=== PATIENT | male | born 1945 | race Caucasian/White ===

== ENCOUNTER → 2018-08-04 | Outpatient (CLI) | payer OTHER ==
[~2018-08-04] MED LIST: ASPI81EC PO; CIPR500 PO; HYDACE5325 PO; LAMO100 PO; METO50ER PO; METR500 PO; OLME20 PO; RXHYD5325 PO; SIMV10 PO; VENL150ER PO; VENL75
== END ==
LOC: LAB 14:52 → LAB SHORT 14:52
DX: L08.9 Local infection of the skin and subcutaneous tissue, unspecified (principal)
CPT/HCPCS: 87070; 87205

== ENCOUNTER → 2019-04-19 | Outpatient (CLI) | payer OTHER | LOC: LAB 11:45 → LAB SHORT 11:45 | DX: L08.9 Local infection of the skin and subcutaneous tissue, unspecified (principal) | CPT/HCPCS: 87070; 87077; 87147; 87186; 87205 ==

== ENCOUNTER 2020-06-13 09:14 | Day surgery (SDC) | payer OTHER ==
[~2020-06-13] VITALS: Ht 172.7 cm; Wt 126.7 kg
--- NOTE | 2020-06-13 09:53 | NUR ---
06/13/20 0953 DALTON SHEPPARDINE GTT PLACED AT [address] GOLD'S ORDERS AT 0970
[2020-06-13] MEDS ORDERED: TAMS.4ER PO (09:57)
[2020-07-06] MEDS ORDERED: METO50ER PO (10:51)
[2020-07-06] MEDS ORDERED: Lamictal200 MG PO (10:51)
[2020-07-06] MEDS ORDERED: Aspirin EC81 MG PO (10:51)
[2020-07-06] MEDS ORDERED: LOSA50 PO (10:51)
[2020-07-06] MEDS ORDERED: VENL150ER PO (10:52)
[2020-07-06] MEDS ORDERED: ZOCOR20 MG PO (10:52)
[2020-07-06] MEDS ORDERED: VENLAFAXINE HCL75 M1 PO (10:52)
[2020-07-06] MEDS ORDERED: TAMS.4ER PO (10:52)
== END 2020-06-13 11:46 | disposition home or self-care (01) ==
LOC: ORSCSDS 09:14
PROVIDERS: Ophthalmology
PROC: 08RJ3JZ Replacement of Right Lens with Synthetic Substitute, Percutaneous Approach (ICD-10-PCS; principal; 2020-06-13 10:30)
DX: H25.11 Age-related nuclear cataract, right eye (principal); I10 Essential (primary) hypertension; I48.91 Unspecified atrial fibrillation; J44.9 Chronic obstructive pulmonary disease, unspecified; G47.33 Obstructive sleep apnea (adult) (pediatric); Z87.891 Personal history of nicotine dependence; E78.5 Hyperlipidemia, unspecified; Z79.82 Long term (current) use of aspirin; Z79.899 Other long term (current) drug therapy; E66.01 Morbid (severe) obesity due to excess calories; Z68.41 Body mass index [BMI] 40.0-44.9, adult
CPT/HCPCS: A9270; J2001; J2250; J3010; J3301; J7040; J7120; V2632

== ENCOUNTER 2020-07-13 08:45 | Day surgery (SDC) | payer OTHER ==
[~2020-07-13] VITALS: Ht 172.7 cm; Wt 127.3 kg
[~2020-07-13 08:45] MED LIST changes: +Aspirin EC81 MG PO; +LOSA50 PO; +Lamictal200 MG PO; +TAMS.4ER PO; +VENLAFAXINE HCL75 M1 PO; +ZOCOR20 MG PO
[2020-07-13] MEDS ORDERED: OLME5TAB PO (09:23)
== END 2020-07-13 11:13 | disposition home or self-care (01) ==
LOC: ORSCSDS 08:45
PROVIDERS: Ophthalmology
PROC: 08RK3JZ Replacement of Left Lens with Synthetic Substitute, Percutaneous Approach (ICD-10-PCS; principal; 2020-07-13 10:30)
DX: H25.12 Age-related nuclear cataract, left eye (principal); I10 Essential (primary) hypertension; G47.33 Obstructive sleep apnea (adult) (pediatric); J44.9 Chronic obstructive pulmonary disease, unspecified; Z87.891 Personal history of nicotine dependence; E66.01 Morbid (severe) obesity due to excess calories; Z68.41 Body mass index [BMI] 40.0-44.9, adult; I48.91 Unspecified atrial fibrillation; Z79.899 Other long term (current) drug therapy; Z79.82 Long term (current) use of aspirin
CPT/HCPCS: A9270; J2001; J2250; J3010; J3301; J7040; V2632

== ENCOUNTER → 2021-01-04 | Outpatient (CLI) | payer OTHER ==
[~2021-01-04] MED LIST changes: +OLME5TAB PO
== END | disposition home or self-care (01) ==
LOC: LAB SHORT 15:12
DX: N39.0 Urinary tract infection, site not specified (principal)
CPT/HCPCS: 87086

== ENCOUNTER 2021-09-08 15:34 | Emergency (ER) | payer OTHER ==
[~2021-09-08] VITALS: Ht 172.7 cm; Wt 127.0 kg
== END 2021-09-08 17:16 | disposition home or self-care (01) ==
LOC: ER 15:34
DX: S06.0X0A Concussion without loss of consciousness, initial encounter (principal); W01.198A Fall on same level from slipping, tripping and stumbling with subsequent striking against other object, initial encounter; Z79.899 Other long term (current) drug therapy; Z87.891 Personal history of nicotine dependence
CPT/HCPCS: 70450

== ENCOUNTER 2023-05-19 17:31 | Emergency (ER) | payer OTHER ==
[~2023-05-19] VITALS: Ht 175.3 cm; Wt 127.0 kg
[2023-05-19 18:23] LABS: BASOPHILS ABSOLUTE AUTO 0.04 K/mm3 (0.00-0.23); BASOPHILS PERCENT AUTO 1 % (0-2); EOSINOPHILS ABSOLUTE AUTO 0.16 K/mm3 (0.00-0.68); EOSINOPHILS PERCENT AUTO 3 % (0-6); Hematocrit 42.4 % (37.0-53.0); Hemoglobin 14.4 g/dL (13.5-17.5); IMMATURE GRAN ABSOLUTE AUTO 0.01 K/mm3 (0.00-0.10); IMMATURE GRAN PERCENT AUTO 0 % (0-1); LYMPHOCYTES ABSOLUTE AUTO 1.48 K/mm3 (0.84-5.20); LYMPHOCYTES PERCENT AUTO 24 % (21-46); MONOCYTES PERCENT AUTO 10 % (4-13); Mean Corpuscular HGB 31.6 pg (26.0-34.0); Mean Corpuscular Volume 93 fL (80-100); Mean Platelet Volume 9.2 fL (9.1-12.4); NEUTROPHILS ABSOLUTE AUTO 4.02 K/mm3 (1.96-9.15); NEUTROPHILS PERCENT AUTO 64 % (41-73); Platelet Count 208 K/mm3 (150-400); Red Blood Cell Count 4.56 M/mm3 (4.30-5.90); White Blood Cell Count 6.31 K/mm3 (4.00-11.30)
[2023-05-19 18:38] LABS: Albumin, Blood 3.5 g/dL (3.4-5.0); Albumin/Globulin Ratio 1.1 (0.8-1.8); Bilirubin, Total 0.3 mg/dL (0.1-1.0); Calcium, Blood 8.8 mg/dL (8.5-10.1); Creatinine, Blood 0.94 mg/dL (0.60-1.20); Globulin, Blood 3.1 g/dL (2.2-4.0); Potassium, Blood 3.9 mmol/L (3.5-5.5); Total Protein, Blood 6.6 g/dL (6.4-8.2)
[2023-05-19 21:45] VITALS: BP 124/90
== END 2023-05-19 21:56 | disposition home or self-care (01) ==
LOC: ER 17:31
PROVIDERS: Physician Assistant
DX: I48.92 Unspecified atrial flutter (principal); I10 Essential (primary) hypertension; E78.5 Hyperlipidemia, unspecified; N40.0 Benign prostatic hyperplasia without lower urinary tract symptoms; F17.220 Nicotine dependence, chewing tobacco, uncomplicated; Z79.82 Long term (current) use of aspirin; Z79.899 Other long term (current) drug therapy
CPT/HCPCS: 71046; 80053; 83690; 84484; 85025; 93005; 93010; 99285-25

== ENCOUNTER → 2024-01-22 | Outpatient (CLI) | payer OTHER | LOC: LAB SHORT 16:34 → LAB 16:34 | DX: L03.116 Cellulitis of left lower limb (principal) | CPT/HCPCS: 87070; 87075; 87077; 87147; 87186; 87205 ==

== ENCOUNTER → 2024-10-26 | Outpatient (CLI) | payer OTHER ==
[2024-10-26 12:27] LABS: BASOPHILS ABSOLUTE AUTO 0.04 K/mm3 (0.00-0.23); BASOPHILS PERCENT AUTO 1 % (0-2); EOSINOPHILS ABSOLUTE AUTO 0.14 K/mm3 (0.00-0.68); EOSINOPHILS PERCENT AUTO 2 % (0-6); Hematocrit 41.6 % (37.0-53.0); Hemoglobin 13.8 g/dL (13.5-17.5); IMMATURE GRAN ABSOLUTE AUTO 0.02 K/mm3 (0.00-0.10); IMMATURE GRAN PERCENT AUTO 0 % (0-1); LYMPHOCYTES ABSOLUTE AUTO 1.33 K/mm3 (0.84-5.20); LYMPHOCYTES PERCENT AUTO 18 % (21-46); MONOCYTES ABSOLUTE AUTO 0.65 K/mm3 (0.16-1.47); MONOCYTES PERCENT AUTO 9 % (4-13); Mean Corpuscular HGB Conc 33.2 g/dL (31.5-36.5); Mean Corpuscular Volume 96 fL (80-100); NEUTROPHILS ABSOLUTE AUTO 5.09 K/mm3 (1.96-9.15); NEUTROPHILS PERCENT AUTO 70 % (41-73); NRBC ABSOLUTE 0.00 K/mm3 (0.00-0.02); NRBC Auto 0.0 /100 WBC (0.0-0.2); Platelet Count 216 K/mm3 (150-400); RDW Coefficient Variation 13.7 % (11.7-14.2); RDW Standard Deviation 48.6 fL (35.1-46.3)
[2024-10-26 12:53] LABS: Alanine Aminotransfer (ALT/SGP 26.0 U/L (12-78); Albumin, Blood 3.7 g/dL (3.4-5.0); Albumin/Globulin Ratio 1.2 (0.8-1.8); Anion Gap 14.0 mmol/L (3-11); Aspartate Aminotrans (AST/SGOT 20.0 U/L (12-37); Bilirubin, Total 0.6 mg/dL (0.1-1.0); Blood Urea Nitrogen 16.0 mg/dL (8-24); CO2, Blood 26.0 mmol/L (21-32); Calcium, Blood 9.1 mg/dL (8.5-10.1); Chloride, Blood 105.0 mmol/L (98-108); Creatinine, Blood 1.14 mg/dL (0.60-1.20); Globulin, Blood 3.1 g/dL (2.2-4.0); Glucose, Blood 120.0 mg/dL (70-99); Potassium, Blood 4.5 mmol/L (3.5-5.5); Sodium, Blood 140.0 mmol/L (136-145); Total Protein, Blood 6.8 g/dL (6.4-8.2)
== END ==
LOC: LAB 12:19 → LAB SHORT 12:19
PROVIDERS: Physician Assistant
DX: I10 Essential (primary) hypertension (principal)
CPT/HCPCS: 80053; 83880; 84484; 85025

== ENCOUNTER 2024-12-30 20:18 | Emergency (ER) | payer OTHER ==
[~2024-12-30] VITALS: Ht 172.7 cm; Wt 127.0 kg
[2024-12-30 21:03] LABS: BASOPHILS ABSOLUTE AUTO 0.03 K/mm3 (0.00-0.23); BASOPHILS PERCENT AUTO 0 % (0-2); EOSINOPHILS ABSOLUTE AUTO 0.13 K/mm3 (0.00-0.68); EOSINOPHILS PERCENT AUTO 2 % (0-6); Hematocrit 42.1 % (37.0-53.0); Hemoglobin 13.7 g/dL (13.5-17.5); IMMATURE GRAN ABSOLUTE AUTO 0.02 K/mm3 (0.00-0.10); IMMATURE GRAN PERCENT AUTO 0 % (0-1); LYMPHOCYTES ABSOLUTE AUTO 1.21 K/mm3 (0.84-5.20); LYMPHOCYTES PERCENT AUTO 16 % (21-46); MONOCYTES ABSOLUTE AUTO 0.79 K/mm3 (0.16-1.47); MONOCYTES PERCENT AUTO 10 % (4-13); Mean Corpuscular HGB Conc 32.5 g/dL (31.5-36.5); Mean Corpuscular Volume 98 fL (80-100); NEUTROPHILS ABSOLUTE AUTO 5.48 K/mm3 (1.96-9.15); NEUTROPHILS PERCENT AUTO 72 % (41-73); NRBC ABSOLUTE 0.00 K/mm3 (0.00-0.02); NRBC Auto 0.0 /100 WBC (0.0-0.2); Platelet Count 181 K/mm3 (150-400); RDW Coefficient Variation 14.1 % (11.7-14.2); RDW Standard Deviation 51.1 fL (35.1-46.3)
[2024-12-30] MEDS ORDERED: Ipratropium/Albuterol SulF 2.5-0.5MG/3 ML Amp INH ONE (21:35)
[2024-12-30 21:40] LABS: Alanine Aminotransfer (ALT/SGP 24.0 U/L (12-78); Albumin, Blood 3.8 g/dL (3.4-5.0); Albumin/Globulin Ratio 1.2 (0.8-1.8); Anion Gap 8.0 mmol/L (3-11); Bilirubin, Total 0.7 mg/dL (0.1-1.0); Blood Urea Nitrogen 20.0 mg/dL (8-24); CO2, Blood 28.0 mmol/L (21-32); Calcium, Blood 8.9 mg/dL (8.5-10.1); Chloride, Blood 107.0 mmol/L (98-108); Creatinine, Blood 1.14 mg/dL (0.60-1.20); Globulin, Blood 3.2 g/dL (2.2-4.0); Glucose, Blood 140.0 mg/dL (70-99); Potassium, Blood 4.4 mmol/L (3.5-5.5); Sodium, Blood 139.0 mmol/L (136-145); Total Protein, Blood 7.0 g/dL (6.4-8.2)
[2024-12-30 22:06] LABS: Aspartate Aminotrans (AST/SGOT 16.0 U/L (12-37)
[2024-12-30] MEDS ORDERED: Metoprolol Tartrate 1 MG/ML 5 ML VIAL IV PRN (22:50)
[2024-12-31] MEDS ORDERED: AMOCLA875 PO (01:14)
[2024-12-31] MEDS ORDERED: PRED20 PO (01:14)
[2024-12-31] MEDS ORDERED: RX Prepack Albuterol 1 PREPACK/6.7 GM INH UD ONE (01:15)
[2024-12-31 01:30] VITALS: BP 154/121
== END 2024-12-31 01:41 | disposition home or self-care (01) ==
LOC: ER 20:18
PROVIDERS: Student in an Organized Health Care Education/Training Program
DX: J44.1 Chronic obstructive pulmonary disease with (acute) exacerbation (principal); I10 Essential (primary) hypertension; E78.5 Hyperlipidemia, unspecified; F17.220 Nicotine dependence, chewing tobacco, uncomplicated; Z79.82 Long term (current) use of aspirin; Z79.2 Long term (current) use of antibiotics; Z79.899 Other long term (current) drug therapy
CPT/HCPCS: 71045; 80053; 83880; 84484; 85025; 93005; 93010; 96374; 99285-25; A9270; J7512

== ENCOUNTER 2025-01-04 06:08 | Day surgery (SDC) | payer OTHER ==
[2025-01-04] VITALS (8 sets, daily range): BP systolic 134–172; BP diastolic 96–125
[~2025-01-04] VITALS: Ht 172.7 cm; Wt 132.0 kg
[~2025-01-04 06:08] MED LIST changes: +AMOCLA875 PO; +PRED20 PO
[2025-01-04] MEDS ORDERED: POTCHL20ER PO (06:35)
[2025-01-04] MEDS ORDERED: FURO20 PO (06:35)
[2025-01-04] MEDS ORDERED: ELIQUIS5 M2 PO (06:35)
[2025-01-04] MEDS ORDERED: NS 1,000 ML IV ONE (06:45)
--- NOTE | 2025-01-04 07:21 | NUR ---
ASSUMED CARE FROM ANETHESIA. PT AWAKE AND VERBALIZING WELL. AFIB 110-120 BPM POST CARDIOVERSION.
[2025-01-04] MEDS ORDERED: AMLO5 PO (07:40)
--- NOTE | 2025-01-04 08:18 | NUR ---
PT AND VERBALIZED UNDERSTANDING OF WRITTEN AND VERBAL D/C INST. IV REMOVED. PT AMB IN CONRAD /S DIFFICULTY. AFIB 110 BPM ON D/C. PT TAKEN OUT OF THE HRT CENTER VIA W/C.
[2025-01-04] MEDS ORDERED: Propofol 10mg/ml 20 ml Vial (Procedural) IV ONE (12:11)
[2025-01-04] MEDS ORDERED: Lidocaine HCl 2% 20 MG/ML 5ML SYR IV ONE (12:11)
== END 2025-01-04 23:00 | disposition home or self-care (01) ==
LOC: MHTC 06:08
DX: I48.0 Paroxysmal atrial fibrillation (principal); I27.20 Pulmonary hypertension, unspecified; I10 Essential (primary) hypertension; G47.33 Obstructive sleep apnea (adult) (pediatric); Z79.01 Long term (current) use of anticoagulants; Z79.899 Other long term (current) drug therapy; Z91.018 Allergy to other foods; Z87.891 Personal history of nicotine dependence
CPT/HCPCS: 92960; J2003; J2704; J7030

== ENCOUNTER 2025-01-12 14:40 | Inpatient (IN) | payer OTHER ==
[~2025-01-12] VITALS: Ht 172.7 cm; Wt 117.6 kg
[~2025-01-12 14:40] MED LIST changes: +AMLO5 PO; +ELIQUIS5 M2 PO; +FURO20 PO; -LOSA50 PO; +LOSARTAN POTAS100 MG PO; +METO100ER PO; +POTCHL20ER PO; +Venlafaxine HC225 MG PO
[2025-01-12 15:13] LABS: BASOPHILS ABSOLUTE AUTO 0.04 K/mm3 (0.00-0.23); BASOPHILS PERCENT AUTO 1 % (0-2); EOSINOPHILS ABSOLUTE AUTO 0.09 K/mm3 (0.00-0.68); EOSINOPHILS PERCENT AUTO 1 % (0-6); Hematocrit 43.5 % (37.0-53.0); Hemoglobin 14.0 g/dL (13.5-17.5); IMMATURE GRAN ABSOLUTE AUTO 0.03 K/mm3 (0.00-0.10); IMMATURE GRAN PERCENT AUTO 0 % (0-1); LYMPHOCYTES ABSOLUTE AUTO 1.31 K/mm3 (0.84-5.20); LYMPHOCYTES PERCENT AUTO 18 % (21-46); MONOCYTES ABSOLUTE AUTO 0.77 K/mm3 (0.16-1.47); MONOCYTES PERCENT AUTO 10 % (4-13); Mean Corpuscular HGB Conc 32.2 g/dL (31.5-36.5); Mean Corpuscular Volume 98 fL (80-100); NEUTROPHILS ABSOLUTE AUTO 5.18 K/mm3 (1.96-9.15); NEUTROPHILS PERCENT AUTO 70 % (41-73); NRBC ABSOLUTE 0.00 K/mm3 (0.00-0.02); NRBC Auto 0.0 /100 WBC (0.0-0.2); Platelet Count 182 K/mm3 (150-400); RDW Coefficient Variation 14.3 % (11.7-14.2); RDW Standard Deviation 51.6 fL (35.1-46.3)
[2025-01-12 15:51] LABS: Alanine Aminotransfer (ALT/SGP 28.0 U/L (12-78); Albumin, Blood 3.5 g/dL (3.4-5.0); Albumin/Globulin Ratio 1.1 (0.8-1.8); Anion Gap 7.0 mmol/L (3-11); Aspartate Aminotrans (AST/SGOT 19.0 U/L (12-37); Bilirubin, Total 1.1 mg/dL (0.1-1.0); Blood Urea Nitrogen 19.0 mg/dL (8-24); CO2, Blood 26.0 mmol/L (21-32); Calcium, Blood 8.9 mg/dL (8.5-10.1); Chloride, Blood 107.0 mmol/L (98-108); Creatinine, Blood 1.1 mg/dL (0.60-1.20); Globulin, Blood 3.2 g/dL (2.2-4.0); Glucose, Blood 123.0 mg/dL (70-99); Potassium, Blood 4.6 mmol/L (3.5-5.5); Sodium, Blood 135.0 mmol/L (136-145); Total Protein, Blood 6.7 g/dL (6.4-8.2)
[2025-01-12] MEDS ORDERED: Diltiazem HCl 5 MG / ML 5ML Vial IV ONE (19:45)
[2025-01-12] MEDS ORDERED: FLU VACC TS2025-26(6MOS UP)/PF 45 MCG/0.5 ML SYRINGE IM SCH (22:00)
[2025-01-12] MEDS ORDERED: Ondansetron HCl 2 MG / ML 2ML Vial IV PRN (22:00)
[2025-01-12] MEDS ORDERED: Diltiazem HCL 125MG/D5 125ML IV SCH (22:20)
[2025-01-13] VITALS (7 sets, daily range): BP systolic 117–165; BP diastolic 70–109
[2025-01-13 04:22] LABS: BASOPHILS ABSOLUTE AUTO 0.03 K/mm3 (0.00-0.23); BASOPHILS PERCENT AUTO 0 % (0-2); EOSINOPHILS ABSOLUTE AUTO 0.09 K/mm3 (0.00-0.68); EOSINOPHILS PERCENT AUTO 1 % (0-6); Hematocrit 40.9 % (37.0-53.0); Hemoglobin 13.3 g/dL (13.5-17.5); IMMATURE GRAN ABSOLUTE AUTO 0.02 K/mm3 (0.00-0.10); IMMATURE GRAN PERCENT AUTO 0 % (0-1); LYMPHOCYTES ABSOLUTE AUTO 1.71 K/mm3 (0.84-5.20); LYMPHOCYTES PERCENT AUTO 22 % (21-46); MONOCYTES ABSOLUTE AUTO 0.78 K/mm3 (0.16-1.47); MONOCYTES PERCENT AUTO 10 % (4-13); Mean Corpuscular HGB Conc 32.5 g/dL (31.5-36.5); Mean Corpuscular Volume 97 fL (80-100); NEUTROPHILS ABSOLUTE AUTO 5.29 K/mm3 (1.96-9.15); NEUTROPHILS PERCENT AUTO 67 % (41-73); NRBC ABSOLUTE 0.00 K/mm3 (0.00-0.02); NRBC Auto 0.0 /100 WBC (0.0-0.2); Platelet Count 167 K/mm3 (150-400); RDW Coefficient Variation 14.1 % (11.7-14.2); RDW Standard Deviation 50.6 fL (35.1-46.3)
--- NOTE | 2025-01-13 06:43 | NUR ---
NO ACUTE EVENTS OVERNIGHT. PT ARRIVED FROM THE ED VIA STRETCHER. PT IS ALERT AND ORIENTED X 4. FOLLOWS COMMANDS. ABLE TO AMBULATE TO THE BATHROOM WITH SBA. CARDIZEM IS INFUSING. VSS. BED LOCKED IN LOWEST POSITION. CALL LIGHT WITHIN REACH. AT BEDSIDE. PT WEARING HIS HOME CPAP WHILE SLEEPING.
[2025-01-13 06:56] LABS: Alanine Aminotransfer (ALT/SGP 26.0 U/L (12-78); Albumin, Blood 3.4 g/dL (3.4-5.0); Albumin/Globulin Ratio 1.2 (0.8-1.8); Anion Gap 10.0 mmol/L (3-11); Aspartate Aminotrans (AST/SGOT 16.0 U/L (12-37); Bilirubin, Total 1.3 mg/dL (0.1-1.0); Blood Urea Nitrogen 18.0 mg/dL (8-24); CO2, Blood 25.0 mmol/L (21-32); Calcium, Blood 8.9 mg/dL (8.5-10.1); Chloride, Blood 105.0 mmol/L (98-108); Creatinine, Blood 0.99 mg/dL (0.60-1.20); Globulin, Blood 2.8 g/dL (2.2-4.0); Glucose, Blood 114.0 mg/dL (70-99); Magnesium, Blood 2.1 mg/dL (1.6-2.4); Potassium, Blood 4.4 mmol/L (3.5-5.5); Sodium, Blood 136.0 mmol/L (136-145); Total Protein, Blood 6.2 g/dL (6.4-8.2)
--- NOTE | 2025-01-13 19:09 | NUR ---
SHIFT SUMMARY PATIENT AOX4 ABLE TO MAKE NEEDS KNOWN DENIES CP OR SOB. HIS VITALS ARE STABLE WITH ELEVATED BP AND O2 96% ON RA. HIS HR IS 70-80S ON THE DILT GTT. IN THE MORNING PATIENT DID NOT WANT TO TAKE HIS METOPROLOL HOSPITALIST AWARE AND CARDIOLOGY CONSULTED AND SPOKE WITH PATIENT AT BEDSIDE.
--- NOTE | 2025-01-13 21:17 | NUR ---
PM NOTES PT HAD 12 SECOND RUN ON VTACH; ASYMPTOMATIC; BP ELEVATE, TELE AFIB 80-90'S, GAVE PM MEDICATIONS, INCLUDING METOPROLOL,NOTIFIED DR CISNEROS, NEW ORDERS FOR AM LABS. PT ALERT, ORIENTED X4; CALM AND COOPERATIVE WITH CARE. PT RESTING IN BED, UP IND IN ROOM. PT DENEIS PAIN, CHEST PAIN/PRESSURE, SOB, NAUSEA, DIZZINESS AND NUMB/TINGLING. TELE REMAINS AFIB, 80-90, ELEVATED BP. EDEMA NOTED TO BLE. SPO2 >90% ON RA, BREATHING EVEN AND UNALBORED. ABD SOFT, NONTENDER, +BT T/O. OTHER VSS. CALL LIGHT WITHIN REACH.
[2025-01-14 03:02] VITALS: BP 1428/93
[2025-01-14 03:46] LABS: Alanine Aminotransfer (ALT/SGP 26.0 U/L (12-78); Albumin, Blood 3.4 g/dL (3.4-5.0); Albumin/Globulin Ratio 1.1 (0.8-1.8); Anion Gap 8.0 mmol/L (3-11); Aspartate Aminotrans (AST/SGOT 21.0 U/L (12-37); Bilirubin, Total 1.2 mg/dL (0.1-1.0); Blood Urea Nitrogen 16.0 mg/dL (8-24); CO2, Blood 31.0 mmol/L (21-32); Calcium, Blood 9.0 mg/dL (8.5-10.1); Chloride, Blood 103.0 mmol/L (98-108); Creatinine, Blood 0.95 mg/dL (0.60-1.20); Globulin, Blood 3.0 g/dL (2.2-4.0); Glucose, Blood 135.0 mg/dL (70-99); Potassium, Blood 3.6 mmol/L (3.5-5.5); Sodium, Blood 138.0 mmol/L (136-145); Total Protein, Blood 6.4 g/dL (6.4-8.2)
--- NOTE | 2025-01-14 04:57 | NUR ---
SHIFT SUMMARY NO ACUTE CHANGES NOTED DURING SHIFT. VSS. CALL LIGHT WITH IN REACH.
[2025-01-14 08:08] VITALS: BP 153/104
[2025-01-14] MEDS ORDERED: Polyethylene Glycol 3350 17 gm PO SCH (10:15)
[2025-01-14 12:11] VITALS: BP 140/102
[2025-01-14 15:14] VITALS: BP 152/82
--- NOTE | 2025-01-14 17:30 | NUR ---
THIS RN AND GUN PERFORATOR LOADER ATTEMPTED TO GET AHOLD OF DR. PÉREZ, WHO IS ON THE PT'S CASE, TO UPDATE HIM OF AFIB 120'S-130'S WITH ACTIVITY. AWAITING FOR A CALL BACK AT THIS TIME.
--- NOTE | 2025-01-14 18:50 | NUR ---
SHIFT SUMMARY PT IS A&0X4, PLEASANT AND COOPERATIVE W/ CARE, ABLE TO MAKE NEEDS KNOWN. AMBULATES IND IN RM. PT MAINTAINS O2 SAT ABOVE 93% ON RA, DENIES SOB. A FIB 80s-110s AT REST ELEVATION TO 120s-130s WITH ACTIVITY. PT DENIED CHEST PAIN/PRESSURE T/O SHIFT. BP NOTED TO HAVE DIASTOLIC HYPERTENSION, DISCUSSED W/ DR. CARLIN. NO NEW ORDERS. FREQUENT TRIPS TO BR DUE TO DIURETICS, WITH MULTIPLE UNSUCCESSFUL ATTEMPTS TO HAVE A BM. MEDICATING PER EMAR. PLAN FOR POSSIBLE DC IN THE MORNING AFTER DIUERESING. HAS BEEN AT BEDSIDE OFTEN AND IS UPDATED ON CARE. PT RESTING IN BED AT THIS TIME. SEE NOTES FOR UPDATES.
[2025-01-14 20:44] VITALS: BP 113/80
[2025-01-14 22:30] VITALS: BP 146/98
[2025-01-15] VITALS (7 sets, daily range): BP systolic 108–150; BP diastolic 82–92
[2025-01-15 04:23] LABS: Anion Gap 9.0 mmol/L (3-11); Blood Urea Nitrogen 16.0 mg/dL (8-24); CO2, Blood 31.0 mmol/L (21-32); Calcium, Blood 8.9 mg/dL (8.5-10.1); Chloride, Blood 99.0 mmol/L (98-108); Creatinine, Blood 1.1 mg/dL (0.60-1.20); Glucose, Blood 135.0 mg/dL (70-99); Potassium, Blood 3.5 mmol/L (3.5-5.5); Sodium, Blood 135.0 mmol/L (136-145)
--- NOTE | 2025-01-15 04:45 | NUR ---
SHIFT SUMMARY. SHIFT HAS BEEN UNREMARKABLE. PT AOX4, PLEASANT, COOPERATIVE W/ CARE, ABLE TO MAKE NEEDS KNOWN. HAS BEEN ABLE TO REST COMFORTABLY THROUGHOUT MUCH OF SHIFT. EARLY IN SHIFT, BECAME VERY AGITATED W/BEING WOKEN UP D/T NOISE IN ADJACENT ROOM. EDUCATED ON OPTIONS FOR EAR PLUGS TO MITIGATE DISTURBANCE FROM NOISE BUT PT REFUSED. WAS ABLE TO SLEEP FOR MUCH OF SHIFT THEREAFTER. AWOKE THIS MORNING PLEASANT AND APOLOGETIC FOR BEING UPSET, REPORTED HX OF PTSD THAT PLAYED INTO BEING UPSET ABOUT NOISE. HR HAS FLUCTUATED THROUGHOUT SHIFT, CONTINUES TO RUN AFIB ON TELE. WHILE SLEEPING, RATE HAS SETTLED IN THE 80s-90s RANGE. WHEN AWAKE SETTLES MORE INTO THE 100s-110s RANGE. TACHYCARDIC UP TO 130s-140s W/ACTIVITY. PT HAS THUS FAR REMAINED OFF OF DILT DRIP THIS SHIFT. MAINTAINS ADEQUATE SATURATION ON ROOM AIR WHILE AWAKE. CPAP WHILE SLEEPING. HAS DENIED PAIN THROUGHOUT SHIFT. VITALS STABLE. INDEPENDENT IN ROOM, CALLS APPROPRIATELY FOR ASSISTANCE. BED LOCKED IN LOWEST POSITION. CALL LIGHT LEFT WITHIN REACH. CONTINUING TO MONITOR.
[2025-01-15] MEDS ORDERED: Polyethylene Glycol 3350 17 gm PO SCH (09:00)
[2025-01-15] MEDS ORDERED: Amiodarone HCl 150 MG in NS 100 ML IV ONE (14:30)
--- NOTE | 2025-01-15 15:15 | NUR ---
DR QUINTANA BACK TO BEDSIDE PTs CAME TO VISIT THIS AFTERNOON AND VOICED CONCERNS ABOUT PTs NEW MEDICATIONS FOR AFIB RVR. DR QUINTANA CAME TO BEDSIDE TO DISCUSS MEDICATIONS AND ADDRESS 'S CONCERNS. DR. QUINTANA SAW THAT PT WAS STILL TACHYCARDIC AND ORDERED A 150 MG AMIODERONE BOLUS. PT's HR AND BP IMPROVED FOLLOWING AMIO BOLUS- VS RECORDED IN CHART. SEE NOTES FOR UPDATES.
[2025-01-15 16:33] LABS: Anion Gap 8.0 mmol/L (3-11); Blood Urea Nitrogen 19.0 mg/dL (8-24); CO2, Blood 33.0 mmol/L (21-32); Calcium, Blood 9.4 mg/dL (8.5-10.1); Chloride, Blood 99.0 mmol/L (98-108); Creatinine, Blood 1.17 mg/dL (0.60-1.20); Glucose, Blood 124.0 mg/dL (70-99); Magnesium, Blood 2.1 mg/dL (1.6-2.4); Potassium, Blood 4.1 mmol/L (3.5-5.5); Sodium, Blood 136.0 mmol/L (136-145)
--- NOTE | 2025-01-15 18:36 | NUR ---
SHIFT SUMMARY PT A&O X4 AND ABLE TO EXPRESS NEEDS. INDEPENDENT IN ROOM. PT MAINTAINS SATS OVER 93% ON RA T/O SHIFT AND DENIES SOB. AFIB 80s-150s IN FIRST HALF OF SHIFT WITH HIGHER RATES OCCURING WITH ACTIVITY. PO AMIO AND AMIO BOLUS ADMINISTERED PER DR. QUINTANA'S ORDERS THIS SHIFT, SEE PREVIOUS NOTE. AFIB HAS SINCE BEEN 80s-130s. BPs STABLE WITH MAPS OVER 65. NO COMPLAINTS OF CHEST PAIN/ PRESSURE T/O SHIFT. PT WAS ABLE TO HAVE A SMALL BM THIS SHIFT AFTER MULTIPLE ATTEMPTS AND MEDICATIONS PER EMAR. HAS VISITED AND BEEN UPDATED ON CARE. PT CURRENTLY RESTING IN BED W/ CALL LIGHT IN REACH. SEE NOTES FOR UPDATES.
[2025-01-16 03:38] VITALS: BP 106/75
[2025-01-16 04:17] LABS: BASOPHILS ABSOLUTE AUTO 0.03 K/mm3 (0.00-0.23); BASOPHILS PERCENT AUTO 0 % (0-2); EOSINOPHILS ABSOLUTE AUTO 0.11 K/mm3 (0.00-0.68); EOSINOPHILS PERCENT AUTO 2 % (0-6); Hematocrit 45.0 % (37.0-53.0); Hemoglobin 14.8 g/dL (13.5-17.5); IMMATURE GRAN ABSOLUTE AUTO 0.02 K/mm3 (0.00-0.10); IMMATURE GRAN PERCENT AUTO 0 % (0-1); LYMPHOCYTES ABSOLUTE AUTO 1.61 K/mm3 (0.84-5.20); LYMPHOCYTES PERCENT AUTO 22 % (21-46); MONOCYTES ABSOLUTE AUTO 0.80 K/mm3 (0.16-1.47); MONOCYTES PERCENT AUTO 11 % (4-13); Mean Corpuscular HGB Conc 32.9 g/dL (31.5-36.5); Mean Corpuscular Volume 96 fL (80-100); NEUTROPHILS ABSOLUTE AUTO 4.90 K/mm3 (1.96-9.15); NEUTROPHILS PERCENT AUTO 66 % (41-73); NRBC ABSOLUTE 0.00 K/mm3 (0.00-0.02); NRBC Auto 0.0 /100 WBC (0.0-0.2); Platelet Count 226 K/mm3 (150-400); RDW Coefficient Variation 14.1 % (11.7-14.2); RDW Standard Deviation 49.3 fL (35.1-46.3)
[2025-01-16 04:34] LABS: Anion Gap 9.0 mmol/L (3-11); Blood Urea Nitrogen 20.0 mg/dL (8-24); CO2, Blood 30.0 mmol/L (21-32); Calcium, Blood 9.4 mg/dL (8.5-10.1); Chloride, Blood 99.0 mmol/L (98-108); Creatinine, Blood 1.18 mg/dL (0.60-1.20); Glucose, Blood 137.0 mg/dL (70-99); Potassium, Blood 3.9 mmol/L (3.5-5.5); Sodium, Blood 134.0 mmol/L (136-145)
--- NOTE | 2025-01-16 04:36 | NUR ---
SHIFT SUMMARY. SHIFT HAS BEEN UNREMARKABLE. PT AOX4, PLEASANT, COOPERATIVE, ABLE TO MAKE NEEDS KNOWN. HAS BEEN ABLE TO REST COMFORTABLY THROUGHOUT MOST OF SHIFT. HAS DENIED PAIN. VITALS HAVE REMAINED STABLE. CONTINUES TO RUN AFIB ON TELE, HR HAS BEEN RUNNING IN THE 70s-100s RANGE THROUGHOUT MUCH OF SHIFT. INDEPENDENT IN ROOM, CALLS APPROPRIATELY FOR ASSISTANCE. BED LOCKED IN LOWEST POSITION. CALL LIGHT LEFT WITHIN REACH. CONTINUING TO MONITOR.
[2025-01-16 08:16] VITALS: BP 148/109
[2025-01-16] MEDS ORDERED: JARDIANCE10 MG PO (10:15)
[2025-01-16] MEDS ORDERED: FURO40 PO (10:15)
[2025-01-16] MEDS ORDERED: AMIODARONE HCL400 M2 PO ×2 (10:15→10:17)
[2025-01-16] MEDS ORDERED: POTCHL20ER PO (10:16)
[2025-01-16] MEDS ORDERED: Amiodarone HCl200 MG PO (10:17)
[2025-01-16 10:36] VITALS: BP 147/102
--- NOTE | 2025-01-16 11:33 | NUR ---
DISCHARGE NOTE PT HAS REMAINED A&O X4, AND APPROPRIATELY COMMUNICATING NEEDS. SATS MAINTAINED OVER 93% ON RAW/OUT PT COMPLAINT OF SOB. HR HAS MAINTAINED AFIB 70s-100s WITH STABLE BPs AND MAPs OVER 65, NO PT COMPLAINT OF CHEST PAIN/ PRESSURE. PT AND SPOUSE EDUCATED ON DISCHARGE INSTRUCTIONS AND QUESTIONS ANSWERED. VITAL SIGNS REMAIN STABLE AND IVs REMOVED PRIOR TO DC. PT TO PARKING LOT IN WHEELCHAIR WITH ALL BELONGINGS IN POSESSION. MEDS FAXED TO [facility] PER PT REQUEST. NO FURTHER NOTES FROM THIS RN.
[2025-01-17] MEDS ORDERED: Potassium Chloride 10 Meq Tablet SA PO SCH (09:00)
== END 2025-01-16 11:30 | disposition home or self-care (01) | DRG 308 ==
LOC: ER 14:40 → PCU 22:00
PROVIDERS: Family Medicine; Physician Assistant; Student in an Organized Health Care Education/Training Program; ADMIT Student in an Organized Health Care Education/Training Program
PROC: 5A09357 Assistance with Respiratory Ventilation, Less than 24 Consecutive Hours, Continuous Positive Airway Pressure (ICD-10-PCS; principal; 2025-01-13)
DX: I48.91 Unspecified atrial fibrillation (principal); I50.21 Acute systolic (congestive) heart failure; Z68.41 Body mass index [BMI] 40.0-44.9, adult; E87.1 Hypo-osmolality and hyponatremia; I11.0 Hypertensive heart disease with heart failure; E78.5 Hyperlipidemia, unspecified; G47.33 Obstructive sleep apnea (adult) (pediatric); J45.909 Unspecified asthma, uncomplicated; G43.909 Migraine, unspecified, not intractable, without status migrainosus; Z87.891 Personal history of nicotine dependence; I27.20 Pulmonary hypertension, unspecified; E66.9 Obesity, unspecified; K59.00 Constipation, unspecified; Z79.01 Long term (current) use of anticoagulants; Z79.899 Other long term (current) drug therapy; Z90.49 Acquired absence of other specified parts of digestive tract; Z98.42 Cataract extraction status, left eye; Z98.41 Cataract extraction status, right eye
CPT/HCPCS: 36415; 80048; 80053; 83690; 83735; 83880; 84484; 85025; 93005; 93010; 93306; 94762; 96374; 99285-25; A9270; J0282; J1938

== ENCOUNTER 2025-03-17 21:04 | Inpatient (IN) | payer OTHER ==
[~2025-03-17] VITALS: Ht 172.7 cm; Wt 127.0 kg
[~2025-03-17 21:04] MED LIST changes: +AMIODARONE HCL400 M2 PO; +Amiodarone HCl200 MG PO; +JARDIANCE10 MG PO
[2025-03-17 22:02] LABS: Influenza A, PCR NEGATIVE (NEGATIVE); Influenza B, PCR NEGATIVE (NEGATIVE); Resp Syncytial Virus, PCR NEGATIVE (NEGATIVE); SARS-Cov-2 (COVID-19) PCR, MMC NEGATIVE (NEGATIVE)
[2025-03-17 22:16] LABS: BASOPHILS ABSOLUTE AUTO 0.01 K/mm3 (0.00-0.23); BASOPHILS PERCENT AUTO 1 % (0-2); EOSINOPHILS ABSOLUTE AUTO 0.01 K/mm3 (0.00-0.68); EOSINOPHILS PERCENT AUTO 1 % (0-6); Hematocrit 45.6 % (37.0-53.0); Hemoglobin 14.5 g/dL (13.5-17.5); IMMATURE GRAN ABSOLUTE AUTO 0.01 K/mm3 (0.00-0.10); IMMATURE GRAN PERCENT AUTO 1 % (0-1); LYMPHOCYTES ABSOLUTE AUTO 0.12 K/mm3 (0.84-5.20); LYMPHOCYTES PERCENT AUTO 9 % (21-46); MONOCYTES ABSOLUTE AUTO 0.01 K/mm3 (0.16-1.47); MONOCYTES PERCENT AUTO 1 % (4-13); Mean Corpuscular HGB Conc 31.8 g/dL (31.5-36.5); Mean Corpuscular Volume 98 fL (80-100); NEUTROPHILS ABSOLUTE AUTO 1.19 K/mm3 (1.96-9.15); NEUTROPHILS PERCENT AUTO 88 % (41-73); NRBC ABSOLUTE 0.02 K/mm3 (0.00-0.02); NRBC Auto 1.5 /100 WBC (0.0-0.2); Platelet Count 184 K/mm3 (150-400); RDW Coefficient Variation 15.0 % (11.7-14.2); RDW Standard Deviation 54.3 fL (35.1-46.3)
[2025-03-17] MEDS ORDERED: NS 1,000 ML IV SCH (22:20)
[2025-03-17 22:37] LABS: Alanine Aminotransfer (ALT/SGP 34.0 U/L (12-78); Albumin, Blood 3.7 g/dL (3.4-5.0); Albumin/Globulin Ratio 1.1 (0.8-1.8); Anion Gap 11.0 mmol/L (3-11); Aspartate Aminotrans (AST/SGOT 46.0 U/L (12-37); Bilirubin, Total 0.7 mg/dL (0.1-1.0); Blood Urea Nitrogen 28.0 mg/dL (8-24); CO2, Blood 24.0 mmol/L (21-32); Calcium, Blood 8.8 mg/dL (8.5-10.1); Chloride, Blood 107.0 mmol/L (98-108); Creatinine, Blood 1.34 mg/dL (0.60-1.20); Globulin, Blood 3.4 g/dL (2.2-4.0); Glucose, Blood 99.0 mg/dL (70-99); Potassium, Blood 4.6 mmol/L (3.5-5.5); Sodium, Blood 137.0 mmol/L (136-145); Total Protein, Blood 7.1 g/dL (6.4-8.2)
[2025-03-18] VITALS (39 sets, daily range): BP systolic 67–134; BP diastolic 38–112
[2025-03-18 00:22] LABS: Source, Urine Clean Catch
[2025-03-18 00:31] LABS: Bilirubin, Urine Neg (Neg); Glucose Qualitative, Urine 4+ (Neg); Ketones, Urine Neg (Neg); Leukocyte Esterase, Urine Neg (Neg); Protein, Urine 2+ (Neg); Specific Gravity, Urine 1.015 (1.003-1.022); Urobilinogen, Urine NORM (Normal)
[2025-03-18 00:53] LABS: Color, Urine Yellow (P-Yellow)
[2025-03-18 00:55] LABS: Red Blood Cells, Urine 50-100 /hpf (0-2); White Blood Cells, Urine 25-50 /hpf (0-5)
[2025-03-18] MEDS ORDERED: CefTRIAXone Sodium 1,000 MG in NS 100 ML IV ONE (01:00)
[2025-03-18] MEDS ORDERED: NS 1,000 ML IV SCH ×2 (01:05→18:55)
[2025-03-18] MEDS ORDERED: FLU VACC TS2025(65UP)/MF59C/PF 45 MCG/0.5 ML SYRINGE IM SCH (02:05)
[2025-03-18] MEDS ORDERED: Vancomycin (Pharmacy Consult) IV SCH (02:05)
[2025-03-18] MEDS ORDERED: Ondansetron HCl 2 MG / ML 2ML Vial IV PRN (02:05)
[2025-03-18] MEDS ORDERED: FentaNYL Citrate 50 MCG/ML 2 ML Injection IV PRN (02:05)
[2025-03-18] MEDS ORDERED: NS 1,000 ML IV ONE (02:05)
[2025-03-18 02:07] LABS: pH Blood Venous 7.22 (7.34-7.37)
[2025-03-18] MEDS ORDERED: Cefepime HCl 1,000 MG in NS 100 ML IV SCH ×2 (02:08→14:30)
[2025-03-18] MEDS ORDERED: Sodium Bicarb 8.4% 1 MEQ/ML 50 ML Vial IV ONE (02:35)
[2025-03-18 02:55] LABS: U Amphetamine Screen Not Detected; U Barbiturate Screen Not Detected; U Benzodiazapine Screen Not Detected; U Buprenorphine Screen Not Detected; U Cannabinoids Screen Not Detected; U Cocaine Screen Not Detected; U Methadone Screen Not Detected; U Methamphetamine Screen Not Detected; U Opiates Screen Not Detected; U Oxycodone Screen Not Detected; U Phencyclidine Screen Not Detected
[2025-03-18 03:15] LABS: BASOPHILS ABSOLUTE AUTO 0.02 K/mm3 (0.00-0.23); BASOPHILS PERCENT AUTO 0 % (0-2); EOSINOPHILS ABSOLUTE AUTO 0.01 K/mm3 (0.00-0.68); EOSINOPHILS PERCENT AUTO 0 % (0-6); Hematocrit 42.9 % (37.0-53.0); Hemoglobin 14.0 g/dL (13.5-17.5); IMMATURE GRAN ABSOLUTE AUTO 0.05 K/mm3 (0.00-0.10); IMMATURE GRAN PERCENT AUTO 1 % (0-1); LYMPHOCYTES ABSOLUTE AUTO 0.12 K/mm3 (0.84-5.20); LYMPHOCYTES PERCENT AUTO 2 % (21-46); MONOCYTES ABSOLUTE AUTO 0.07 K/mm3 (0.16-1.47); MONOCYTES PERCENT AUTO 1 % (4-13); Mean Corpuscular HGB Conc 32.6 g/dL (31.5-36.5); Mean Corpuscular Volume 97 fL (80-100); NEUTROPHILS ABSOLUTE AUTO 5.70 K/mm3 (1.96-9.15); NEUTROPHILS PERCENT AUTO 96 % (41-73); NRBC ABSOLUTE 0.00 K/mm3 (0.00-0.02); NRBC Auto 0.0 /100 WBC (0.0-0.2); Platelet Count 147 K/mm3 (150-400); RDW Coefficient Variation 15.3 % (11.7-14.2); RDW Standard Deviation 54.4 fL (35.1-46.3)
[2025-03-18 03:22] LABS: Prothrombin Time Results 11.6 Sec (9.7-11.5)
[2025-03-18 03:24] LABS: Magnesium, Blood 1.8 mg/dL (1.6-2.4); Phosphorus, Blood 2.0 mg/dL (2.5-4.9)
[2025-03-18 03:44] LABS: Alanine Aminotransfer (ALT/SGP 31.0 U/L (12-78); Albumin, Blood 3.3 g/dL (3.4-5.0); Albumin/Globulin Ratio 1.1 (0.8-1.8); Anion Gap 15.0 mmol/L (3-11); Aspartate Aminotrans (AST/SGOT 30.0 U/L (12-37); Bilirubin, Total 1.0 mg/dL (0.1-1.0); Blood Urea Nitrogen 31.0 mg/dL (8-24); CO2, Blood 17.0 mmol/L (21-32); Calcium, Blood 8.7 mg/dL (8.5-10.1); Chloride, Blood 109.0 mmol/L (98-108); Creatinine, Blood 1.61 mg/dL (0.60-1.20); Globulin, Blood 3.0 g/dL (2.2-4.0); Glucose, Blood 117.0 mg/dL (70-99); Potassium, Blood 4.3 mmol/L (3.5-5.5); Sodium, Blood 137.0 mmol/L (136-145); Total Protein, Blood 6.3 g/dL (6.4-8.2)
[2025-03-18] MEDS ORDERED: Vancomycin HCL 2,500 MG in NS 500 ML IV ONE (04:10)
[2025-03-18] MEDS ORDERED: Sodium Bicarb 8.4% Inj 100 MEQ in Sodium Chloride 0.45% 1,000 ML IV ONE (06:00)
--- NOTE | 2025-03-18 06:36 | NUR ---
ARRIVAL/ SHIFT SUMMARY: PT ARRIVED TO ICU 14 FROM ER @ 0347. PT WAS TRANSPORTED VIA GURNEY AND TRASFERRED TO HOSPITAL BED VIA SHEET DRAW. REPORT RECEIVED FROM SUPERVISORY AIDE. ALL PT BELONGINGS ARRIVED WITH PT. PT IS DOING WELL AND RESTING IN BED. PT IS ALERT AND FOLLOWING COMMANDS. PT DENIES ANY PAIN, CP, OR SOB AT THIS TIME. LUNG SOUNDS ARE STRIDOR THROUGHOUT, ON BIPAP AND SPO2 >95%. A-FIB RYTHM WITH SBP: 80-100'S MAP >65 HR: 115-130'S. IV: LAC AND FOREARM. LINES AND CORDS PLACED OUT OF REACH. CALL LIGHT PLACED WITHIN REACH.
[2025-03-18 12:42] LABS: Albumin, Blood 3.1 g/dL (3.4-5.0); Anion Gap 11 mmol/L (3-11); Blood Urea Nitrogen 36 mg/dL (8-24); CO2, Blood 23 mmol/L (21-32); Calcium, Blood 8.2 mg/dL (8.5-10.1); Chloride, Blood 107 mmol/L (98-108); Creatinine, Blood 1.73 mg/dL (0.60-1.20); Glucose, Blood 120 mg/dL (70-99); Phosphorus, Blood 3.4 mg/dL (2.5-4.9); Potassium, Blood 4.3 mmol/L (3.5-5.5); Sodium, Blood 137 mmol/L (136-145)
--- NOTE | 2025-03-18 16:30 | NUR ---
CONSULT RECEIVED, PT IS ADMITTED WITH SEVERE SEPSIS. HE REMAINS A FULL CODE WITH NO POLST OR AD ON FILE. PC RN WILL VISIT PT'S FAMILY AFTER THE WEEKEND.
[2025-03-18] MEDS ORDERED: Diltiazem HCl 5 MG / ML 5ML Vial ONE (16:43)
--- NOTE | 2025-03-18 17:19 | NUR ---
SHIFT SUMMARY: PT ALERT AND ORIENTED X4, ABLE TO FOLLOW COMMANDS AND MAKE NEEDS KNOWN. STRENGTH WEAK, EQUAL BILATERALLY. HR AFIB 100'S. DENIES CP/PRESSURE. AFEBRILE. SPO2 >96% ON 2-3L. LUNG SOUNDS COARSE. CPAP AT BEDSIDE FOR NOC. BP SOFT THIS SHIFT, MAP >65. PULSES STRONG AND EQUAL THROUGHOUT. ABD MILD DISTENDED, BOWEL SOUNDS +. PT WITH X2 BM THIS SHIFT. PT ABLE TO TRANSFER WITH ONE PERSON ASSIST TO [place] [facility]EDSIDE MAJORITY OF THE DAY. UPDATED ON PT PLAN OF CARE. BED IN LOW, CALL LIGHT IN REACH, WILL REPORT TO ONCOMING RN.
[2025-03-18] MEDS ORDERED: Enoxaparin 40 MG/0.4 ML SYR SC SCH (20:00)
[2025-03-18 21:09] LABS: Anion Gap 12.0 mmol/L (3-11); Blood Urea Nitrogen 40.0 mg/dL (8-24); CO2, Blood 23.0 mmol/L (21-32); Calcium, Blood 7.9 mg/dL (8.5-10.1); Chloride, Blood 105.0 mmol/L (98-108); Creatinine, Blood 1.81 mg/dL (0.60-1.20); Glucose, Blood 140.0 mg/dL (70-99); Potassium, Blood 4.0 mmol/L (3.5-5.5); Sodium, Blood 136.0 mmol/L (136-145)
[2025-03-18 21:33] LABS: Alanine Aminotransfer (ALT/SGP 27.0 U/L (12-78); Albumin, Blood 2.9 g/dL (3.4-5.0); Albumin/Globulin Ratio 1.1 (0.8-1.8); Anion Gap 10.0 mmol/L (3-11); Aspartate Aminotrans (AST/SGOT 19.0 U/L (12-37); Bilirubin, Total 0.6 mg/dL (0.1-1.0); Blood Urea Nitrogen 40.0 mg/dL (8-24); CO2, Blood 24.0 mmol/L (21-32); Calcium, Blood 8.0 mg/dL (8.5-10.1); Chloride, Blood 105.0 mmol/L (98-108); Creatinine, Blood 1.82 mg/dL (0.60-1.20); Globulin, Blood 2.7 g/dL (2.2-4.0); Glucose, Blood 139.0 mg/dL (70-99); Magnesium, Blood 1.8 mg/dL (1.6-2.4); Phosphorus, Blood 3.7 mg/dL (2.5-4.9); Potassium, Blood 4.0 mmol/L (3.5-5.5); Sodium, Blood 135.0 mmol/L (136-145); Total Protein, Blood 5.6 g/dL (6.4-8.2)
[2025-03-19] VITALS (20 sets, daily range): BP systolic 89–136; BP diastolic 55–81
[2025-03-19 04:16] LABS: Hematocrit 35.9 % (37.0-53.0); Hemoglobin 11.8 g/dL (13.5-17.5); Mean Corpuscular HGB Conc 32.9 g/dL (31.5-36.5); Mean Corpuscular Volume 98 fL (80-100); NRBC ABSOLUTE 0.00 K/mm3 (0.00-0.02); NRBC Auto 0.0 /100 WBC (0.0-0.2); Platelet Count 114 K/mm3 (150-400); RDW Coefficient Variation 15.9 % (11.7-14.2); RDW Standard Deviation 56.8 fL (35.1-46.3)
[2025-03-19 04:42] LABS: BAND PERCENT MAN 13 % (0-8); BASOPHILS ABSOLUTE MAN 0.16 K/mm3 (0.00-0.23); BASOPHILS PERCENT MAN 1 % (0-2); EOSINOPHILS ABSOLUTE MAN 0.00 K/mm3 (0.00-0.68); EOSINOPHILS PERCENT MAN 0 % (0-6); LYMPHOCYTES ABSOLUTE MAN 0.99 K/mm3 (0.84-5.20); LYMPHOCYTES PERCENT MAN 6 % (21-46); METAMYELOCYTE ABSOLUTE MAN 0.49 K/mm3 (0.00-0.00); METAMYELOCYTE PERCENT MAN 3 % (0-0); MONOCYTES ABSOLUTE MAN 0.82 K/mm3 (0.16-1.47); MONOCYTES PERCENT MAN 5 % (4-13); MYELOCYTE ABSOLUTE MAN 0.16 K/mm3 (0.00-0.00); MYELOCYTE PERCENT MAN 1 % (0-0); NEUTROPHILS ABSOLUTE MAN 13.93 K/mm3 (1.96-9.15); SEG NEUTROPHILS PERCENT MAN 71 % (41-73)
[2025-03-19 04:47] LABS: Alanine Aminotransfer (ALT/SGP 26.0 U/L (12-78); Albumin, Blood 2.7 g/dL (3.4-5.0); Albumin/Globulin Ratio 1.0 (0.8-1.8); Anion Gap 11.0 mmol/L (3-11); Aspartate Aminotrans (AST/SGOT 20.0 U/L (12-37); Bilirubin, Total 0.7 mg/dL (0.1-1.0); Blood Urea Nitrogen 38.0 mg/dL (8-24); CO2, Blood 24.0 mmol/L (21-32); Calcium, Blood 7.8 mg/dL (8.5-10.1); Chloride, Blood 106.0 mmol/L (98-108); Creatinine, Blood 1.63 mg/dL (0.60-1.20); Globulin, Blood 2.8 g/dL (2.2-4.0); Glucose, Blood 100.0 mg/dL (70-99); Potassium, Blood 3.6 mmol/L (3.5-5.5); Sodium, Blood 137.0 mmol/L (136-145); Total Protein, Blood 5.5 g/dL (6.4-8.2)
--- NOTE | 2025-03-19 06:38 | NUR ---
SHIFT SUMMARY PT A&O X4, CALM, COOPERATIVE TO CARE. PT HR IN THE 100'S-120'S, AFIB. HR INCREASES WITH ACTIVITY. HE DENIES ANY CP/PRESSURE, SBP SOFT IN THE 80'S-90'S, MAP >65. SpO2 >92% ON 3L VIA NC. PT USES CPAP FOR SLEEP AT HOME, HOSPITAL CPAP AT BEDSDIE PT USED FOR A COUPLE HOURS T/O NIGHT. PT UP AT SIDE OF BED TWICE TO USE URINAL. PT HAS HX OF RETENTION AND PRIOR STRIAGHT CATH THIS ADMISSION. BLADDER SCAN COMPLETED WHICH SHOWED 605MLS, PT VOIDED 400MLS AFTER. PT RESTING IN BED AT THIS TIME. CALL LIGHT IN REACH. WILL MONITOR PT AND REPORT TO ONCOMING RN.
--- NOTE | 2025-03-19 11:41 | NUR ---
AM NOTE: PT A/OX4 ABLE TO MAKE NEEDS KNOWN. HE REPORTS FEELING BETTER AND LESS WEAK. HE IS ABLE TO GET OUT OF BED WITH STAND BY ASSISTANCE. HE REMAINS IN AFIB WITH RATES IN THE LOW 100S INCREASING TO THE 130S WITH ACTIVITY. HE WAS ON 3L NC TITRATED TO RA WITH SPO2>90%. HE DENIES SOB. HE IS VOIDING. SEE I&OS. CALL LIGHT IN REACH, CARE CONTINUES
[2025-03-19] MEDS ORDERED: NS 1,000 ML IV SCH (12:00)
[2025-03-19] MEDS ORDERED: Heparin Sodium,Porcine/0.5 NS 500 ML IV SCH (14:00)
[2025-03-19] MEDS ORDERED: Metoprolol Tartrate 1 MG/ML 5 ML VIAL IV ONE (14:00)
[2025-03-19 15:03] LABS: Anion Gap 9.0 mmol/L (3-11); Blood Urea Nitrogen 34.0 mg/dL (8-24); CO2, Blood 25.0 mmol/L (21-32); Calcium, Blood 8.4 mg/dL (8.5-10.1); Chloride, Blood 105.0 mmol/L (98-108); Creatinine, Blood 1.43 mg/dL (0.60-1.20); Glucose, Blood 128.0 mg/dL (70-99); Magnesium, Blood 2.1 mg/dL (1.6-2.4); Potassium, Blood 3.8 mmol/L (3.5-5.5); Sodium, Blood 135.0 mmol/L (136-145)
--- NOTE | 2025-03-19 17:04 | NUR ---
SHIFT NOTE: PT REMAINS ON RA WITH NO SOB. HE USES CPAP WITH 3L BLEED IN WHEN SLEEPING. HE CONTINUES TO VOID SPONTANIOUSLY WITHOUT DIFFICULTY. SEE BLADDER DOCUMENTATION FOR BLADDER VOLUME AT TIME OF SCAN. HEPARIN STARTED PER EMAR AND NS CONTINUES TO INFUSE. PT OOB WITH STAND BY FROM STAFF FOR LINES. CALL LIGHT IN REACH
[2025-03-19] MEDS ORDERED: Enoxaparin 40 MG/0.4 ML SYR SC SCH (21:00)
[2025-03-19] MEDS ORDERED: Dose Adjust by Pharmacy XX STA (21:36)
[2025-03-19] MEDS ORDERED: Heparin Sodium 5000 Units/ML 1ML MDV IV ONE (21:40)
[2025-03-20 04:00] VITALS: BP 128/88
[2025-03-20 04:10] LABS: BASOPHILS ABSOLUTE AUTO 0.04 K/mm3 (0.00-0.23); BASOPHILS PERCENT AUTO 0 % (0-2); EOSINOPHILS ABSOLUTE AUTO 0.27 K/mm3 (0.00-0.68); EOSINOPHILS PERCENT AUTO 2 % (0-6); Hematocrit 37.8 % (37.0-53.0); Hemoglobin 12.3 g/dL (13.5-17.5); IMMATURE GRAN ABSOLUTE AUTO 0.48 K/mm3 (0.00-0.10); IMMATURE GRAN PERCENT AUTO 3 % (0-1); LYMPHOCYTES ABSOLUTE AUTO 0.93 K/mm3 (0.84-5.20); LYMPHOCYTES PERCENT AUTO 6 % (21-46); MONOCYTES ABSOLUTE AUTO 1.01 K/mm3 (0.16-1.47); MONOCYTES PERCENT AUTO 7 % (4-13); Mean Corpuscular HGB Conc 32.5 g/dL (31.5-36.5); Mean Corpuscular Volume 99 fL (80-100); NEUTROPHILS ABSOLUTE AUTO 11.79 K/mm3 (1.96-9.15); NEUTROPHILS PERCENT AUTO 81 % (41-73); NRBC ABSOLUTE 0.00 K/mm3 (0.00-0.02); NRBC Auto 0.0 /100 WBC (0.0-0.2); Platelet Count 110 K/mm3 (150-400); RDW Coefficient Variation 15.9 % (11.7-14.2); RDW Standard Deviation 57.9 fL (35.1-46.3)
[2025-03-20 04:32] LABS: Alanine Aminotransfer (ALT/SGP 25.0 U/L (12-78); Albumin, Blood 2.6 g/dL (3.4-5.0); Albumin/Globulin Ratio 0.8 (0.8-1.8); Anion Gap 10.0 mmol/L (3-11); Aspartate Aminotrans (AST/SGOT 19.0 U/L (12-37); Bilirubin, Total 0.6 mg/dL (0.1-1.0); Blood Urea Nitrogen 22.0 mg/dL (8-24); CO2, Blood 23.0 mmol/L (21-32); Calcium, Blood 8.1 mg/dL (8.5-10.1); Chloride, Blood 112.0 mmol/L (98-108); Creatinine, Blood 1.04 mg/dL (0.60-1.20); Globulin, Blood 3.2 g/dL (2.2-4.0); Glucose, Blood 117.0 mg/dL (70-99); Potassium, Blood 4.1 mmol/L (3.5-5.5); Sodium, Blood 141.0 mmol/L (136-145); Total Protein, Blood 5.8 g/dL (6.4-8.2)
[2025-03-20] MEDS ORDERED: Dose Adjust by Pharmacy XX STA ×5 (04:47→22:55)
[2025-03-20] MEDS ORDERED: Heparin Sodium 5000 Units/ML 1ML MDV IV ONE (04:50)
[2025-03-20] MEDS ORDERED: NS 1,000 ML IV SCH (05:20)
--- NOTE | 2025-03-20 06:05 | NUR ---
ASSUMED CARE OF PT AT 1900. PT AXOX4. HEPARIN INFUSION RUNNING PER JUN. PT REMAINED IN AFIB THROUGHOUT THE SHIFT WITH HR RANGING FROM 100-140S. PT VOIDED WELL OVER NIGHT; HOWEVER AFTER VOIDING THIS MORNING, A BLADDER SCAN WAS PERFORMED AND SHOWED 459ML PVR. MD NOTIFIED AND SC ORDERED. DURING SC, THIS RN ENCOUNTERED NO DIFFICULTY INSERTING THE CATHETER HOWEVER, CARMEL BLOOD IMMEDIATLY APPEARED IN THE CATHETER BAG, THEN STOPPED. A LARGE AMOUNT OF URINE SUBSEQUENTLY LEAKED AROUND THE CATHETER. MD CAME TO BEDISDE TO ASSESS AND WANTED CATHETER REMOVED, REPEAT BLADDER SCAN IN 6HRS AND TO HOLD THE HEPARIN GTT FOR 3HRS. PHARMACY NOTIFIED AND HEPARIN GTT HELD. PT REPORTED DULL CHEST PAIN; EKG OBTAINED WITH NO ACUTE CHANGES. CHEST PAIN RESOLVED WITHIN MINUTES. MD NOTIFIED WITH NO NEW ORDERS.
[2025-03-20 08:54] VITALS: BP 136/102
--- NOTE | 2025-03-20 11:45 | NUR ---
PALLIATIVE CARE VISIT: MET WITH PT AND HIS ROBERT IN ROOM. DR. SALAS ARRIVED DURING MEETING. DISCUSSED CT SCAN RESULTS OF RENAL MASS FOUND, LIKELY CARCINOMA, SO UROLOGY CONSULT PLACED TO ADDRESS CONCERNS OF MASS AND URINE RETENTION, ENLARGED PROSTATE. PRIOR TO DR. BEAN VISIT WE WERE DISCUSSING POLST, CODE STATUS AND ADVANCE DIRECTIVE. PT UNDECIDED ON CODE STATUS, ADVISED TO STAY FULL CODE IF UNDECIDED. PT IS INTERESTED IN COMPLETING A ADVANCE DIRECTIVE AND SO IS HIS . PROVIDED 2 ADVANCE DIRECTIVE PAMPHLETS. AND PT PLAN TO DISCUSS FURTHER CODE STATUS AND WILL REVIEW THE ADVANCE DIRECTIVE. DISCUSSED GOC CONCERNING NEW FINDINGS. PT WANTS TO BE ALONE WITH TO DISCUSS THIS. LEFT AND GAVE PRIMARY RN UPDATE.
[2025-03-20 13:32] VITALS: BP 135/97
[2025-03-20 13:40] VITALS: BP 153/106
--- NOTE | 2025-03-20 13:51 | NUR ---
TRANSFER SUMMARY PT TAKEN TO PCU ROOM ONE BY DIPAK RN AND ASIF RN. PT BELONGINGS W/ PT, INCLUDING PHONE, HOME CPAP, GLASSES AND CLOTHING ITEMS. PT TRANSFERS TO BED W/ STEADY GAIT.
--- NOTE | 2025-03-20 14:09 | NUR ---
PT REMAINS AOX4, SBA/1 ASSIST TO BSC. PT ABLE TO USE CALL LIGHT AND MAKE NEEDS KNOWN. PT ON ROOM AIR WHILE AWAKE WITH GOOD SPO2 SAT. PT TOLERATING IV FLUIDS AND ABX WELL. PT TOLERATING HEPARIN INFUSION WELL. PT HAS HAD EPISODES OF HEMATURIA [facility] PER PT WELL DURING ADMIT. HEMATURIA IS INTERMITTENT WITH SEVERAL CLEAR YELLOW URINE OUTPUTS NOTED BETWEEN HEMATURIA EPISODES. PHYSICIAN AWARE OF HEMATURIA AND PT TO CONTINUE HEPARIN INFUSION. DR. SAINI-UROLOGY DID SEE PT TODAY. PT WAS MOVED TO PCU 1 AND REPORT GIVEN TO NIURKA GILMORE. PT TRANSFERED WITH ALL BELONINGS AND PAPERWORK. PT AWARE OF TRANSFER.
--- NOTE | 2025-03-20 14:44 | NUR ---
TRANSFER FROM ICU TO PCU 01. PATIENT BROUGHT OVER VIA WHEELCHAIR AND ABLE TO STAND AND TRANSFER WITH SBA. ALERT AND ORIENTED. PERRLA. DENIES PAIN AT THIS TIME. SOB ON EXCERTION. WEARS CPAP AT NOC WITH 3L BLEED IN. LUNG SOUNDS CLEAR AND DIM IN BASES. TELE SHOWING AIB WITH HR 110'S-120'S. IV HEPARIN AND NORMAL SALINE INFUSING PER EMAR. EDEMA NOTED TO BLE. PPP. DENIES CHEST PAIN/PRESSURE/PALPITATIONS. BOWEL TONES PRESENT. TOLERATING PO DIET ALTHOUGH PATIENT STATES HE DOES NOT HAVE AN APPEATITE. UROLOGY CONSULT PRIOR TO PCU TRANSFER. PATIENT STOOD AND USED URINAL WITH THIS RN UPON TRANSFER AND VOIDED 300 ML CLEAR/YELLOW URINE. NO BLOOD NOTED. PATIENT DENIES PAIN WHEN URINATING. ORIENTED TO ROOM AND UNIT. PATIENT INSTRUCTED TO USE CALL LIGHT FOR ASSISTANCE. DENIES NEED FOR THIS RN TO CALL FAMILY TO UPDATE ON TRANSFER. CALL LIGHT IN REACH. DENIES NEEDS AT THIS TIME.
[2025-03-20 15:01] VITALS: BP 142/94
--- NOTE | 2025-03-20 18:19 | NUR ---
SHIFT SUMMARY: NO ACUTE CHANGES. SON AT BEDSIDE VISITING. PATIENT REMAINS ALERT AND ORIENTED. TELE SHOWING AFIB WITH HR 100-110'S. ON ROOM AIR. TOLERATING PO DIET. USING URINAL TO VOID. BOWEL MOVEMENT X2. HEPARIN GTT AND NS CONTINUES TO INFUSE. CALL LIGHT IN REACH. DENIES NEEDS AT THIS TIME.
[2025-03-20 20:03] VITALS: BP 145/97
[2025-03-21] VITALS (8 sets, daily range): BP systolic 134–155; BP diastolic 99–117
[2025-03-21] MEDS ORDERED: Metoprolol Tartrate 1 MG/ML 5 ML VIAL IV PRN (01:10)
[2025-03-21 05:58] LABS: BASOPHILS ABSOLUTE AUTO 0.03 K/mm3 (0.00-0.23); BASOPHILS PERCENT AUTO 0 % (0-2); EOSINOPHILS ABSOLUTE AUTO 0.17 K/mm3 (0.00-0.68); EOSINOPHILS PERCENT AUTO 2 % (0-6); Hematocrit 36.9 % (37.0-53.0); Hemoglobin 11.9 g/dL (13.5-17.5); IMMATURE GRAN ABSOLUTE AUTO 0.04 K/mm3 (0.00-0.10); IMMATURE GRAN PERCENT AUTO 0 % (0-1); LYMPHOCYTES ABSOLUTE AUTO 0.99 K/mm3 (0.84-5.20); LYMPHOCYTES PERCENT AUTO 9 % (21-46); MONOCYTES ABSOLUTE AUTO 0.77 K/mm3 (0.16-1.47); MONOCYTES PERCENT AUTO 7 % (4-13); Mean Corpuscular HGB Conc 32.2 g/dL (31.5-36.5); Mean Corpuscular Volume 98 fL (80-100); NEUTROPHILS ABSOLUTE AUTO 8.63 K/mm3 (1.96-9.15); NEUTROPHILS PERCENT AUTO 81 % (41-73); NRBC ABSOLUTE 0.00 K/mm3 (0.00-0.02); NRBC Auto 0.0 /100 WBC (0.0-0.2); Platelet Count 118 K/mm3 (150-400); RDW Coefficient Variation 15.9 % (11.7-14.2); RDW Standard Deviation 58.2 fL (35.1-46.3)
[2025-03-21] MEDS ORDERED: Dose Adjust by Pharmacy XX STA (06:08)
[2025-03-21 06:19] LABS: Alanine Aminotransfer (ALT/SGP 22.0 U/L (12-78); Albumin, Blood 2.8 g/dL (3.4-5.0); Albumin/Globulin Ratio 0.9 (0.8-1.8); Anion Gap 8.0 mmol/L (3-11); Aspartate Aminotrans (AST/SGOT 15.0 U/L (12-37); Bilirubin, Total 0.6 mg/dL (0.1-1.0); Blood Urea Nitrogen 13.0 mg/dL (8-24); CO2, Blood 24.0 mmol/L (21-32); Calcium, Blood 8.6 mg/dL (8.5-10.1); Chloride, Blood 113.0 mmol/L (98-108); Creatinine, Blood 0.92 mg/dL (0.60-1.20); Globulin, Blood 3.2 g/dL (2.2-4.0); Glucose, Blood 135.0 mg/dL (70-99); Potassium, Blood 4.0 mmol/L (3.5-5.5); Sodium, Blood 141.0 mmol/L (136-145); Total Protein, Blood 6.0 g/dL (6.4-8.2)
--- NOTE | 2025-03-21 08:03 | NUR ---
SHIFT SUMMARY: PT IS A&OX4, PLEASANT AND COOPERATIVE WITH CARE. HYPERTENSIVE, PRN 5 MG IV LOPRESSOR GIVEN, WITH GOOD EFFECT. PT REMAINS IN AFIB 100'S-120'S, DOES REACH 150'S WITH ANY EXERTION. HE IS ASYMPTOMATIC, AND ONCE HE IS BACK SITTING, HE QUICKLY RECOVERS. HEPARIN GTT TITRATED PER ORDER. DENIES PAIN. HE IS A SBA TO , HE VOIDS IN THE URINAL. VOIDING LARGE AMOUNTS OF CLEAR, PALE YELLOW URINE, NO SIGNS OF HEMATURIA. HIS PVR AFTER VOIDING 240ML WAS 90ML IN BLADDER. HE HAD ONE SMALL BM THIS SHIFT. TOLERATING A HEART HEALTHY DIET. PT CHEWS TOBACCO DAILY. BED IN LOWEST POSITION, CALL LIGHT WITHIN REACH. CALLS APPROPRIATELY AND IS ABLE TO ADVOCATE NEEDS EFFECTIVELY.
--- NOTE | 2025-03-21 09:48 | NUR ---
AM NOTE: PATIENT ALERT AND ORIENTED X4. DENIES PAIN. MOVING ALL EXTREMITIES. PERRLA, WITH READING GLASSES AT BEDSIDE. UP WITH SBA TO USE URINAL AND UP TO BATHROOM. ON ROOM AIR AT THIS TIME. HOME CPAP AT BEDSIDE. LUNG SOUNDS CLEAR AND DIMINISHED. SOB ON EXCERTION. TELE SHOWING AFIB WITH HR 90-120'S AT REST AND UP TO 140'S THIS MORNING WITH ACTIVITY. DENIES CHEST PAIN/PRESSURE/PALPITATIONS. EDEMA NOTED TO BLE. HEPARIN GTT AND NS INFUSING PER EMAR. BOWEL TONES PRESENT. DENIES ABDOMINAL PAIN/NAUSEA. TOLERATING PO DIET WITHOUT ISSUES. UP WITH SBA TO BATHROOM. USING URINAL TO VOID. NO NOTED BLOOD IN URINE THIS MORNING. URINE CLEAR/YELLOW. POST VOID BLADDER SCAN COMPLETED THIS MORNING READING 215ML. PATIENT VOIDING 200-300 AT A TIME. SKIN DUSKY WITH SCATTERED BRUISING. CALL LIGHT IN REACH. DENIES NEEDS AT THIS TIME.
--- NOTE | 2025-03-21 13:05 | NUR ---
BY THIS AFTERNOON AND UPDATED BY THIS RN. VITAL SIGNS STABLE. UP TO RECLINER FOR LUNCH. PATIENT REPORTS POOR APPEATITE AND EATING SMALL CUP OF FRUIT FOR LUNCH. CALL LIGHT IN REACH. DENIES NEEDS AT THIS TIME.
--- NOTE | 2025-03-21 16:04 | NUR ---
DR. KELLEY TO BEDSIDE THIS RN PRESENT FOR MD ROUNDS AND DISCUSSED CONCERNS WITH INCREASED WEIGHT, INCREASED BLE EDEMA, POSITIVE I/O STATUS, CURRENT NS FLUIDS INFUSING, HOME MEDICATIONS OF FLOMAX AND LOSARTAN. ORDERS FOR THIS RN TO PLACE: DISCONTINUE IV FLUIDS DISCONTINUE PRN METOPROLOL 5MG IV FOR HYPERTENSION START FLOMAX 0.4MG PO AT BEDTIME TONIGHT START LASIX 20MG PO DAILY STARTING NOW
--- NOTE | 2025-03-21 17:03 | NUR ---
THIS RN DISCUSSED POTASSIUM REPLACEMENT WITH DR. KELLEY IN ADDITION TO THE RESUMPTION OF HOME LASIX. ORDERS FOR KCL 10MEQ PO X1 NOW. ORDERS IN PLACE.
[2025-03-21] MEDS ORDERED: Potassium Chloride 10 Meq Tablet SA PO ONE (17:05)
--- NOTE | 2025-03-21 18:43 | NUR ---
SHIFT SUMMARY: NO ACUTE CHANGES. PATIENT REMAINS ALERT AND ORIENTED. ON ROOM AIR. HOME CPAP AT BEDSIDE, NEW MASK PROVIDED BY RESPIRATORY. TELE CONTINUES TO SHOW AFIB WITH HR 90-110'S AT REST AND UP TO 130-140'S WITH ACTIVITY. HEPARIN GTT DISCONTINUED AND ORAL MEDS GIVEN PER EMAR. CONTINUES TO HAVE MODERATE EDEMA TO BLE. POOR APPEATITE. NORMAL SALINE DISCONTINUED. PO LASIX AND PO POTASSIUM GIVEN PER EMAR. UP IN RECLINER SURROUNDING MEAL TIMES. STRICT INTAKE AND OUTPUT. USING URINAL TO VOID. NO SIGNS OF BLEEDING. CALL LIGHT IN REACH DENIES NEEDS. AT BEDSIDE.
[2025-03-21] MEDS ORDERED: NS 250 ML IV PRN (23:20)
[2025-03-22 03:54] LABS: BASOPHILS ABSOLUTE AUTO 0.04 K/mm3 (0.00-0.23); BASOPHILS PERCENT AUTO 1 % (0-2); EOSINOPHILS ABSOLUTE AUTO 0.12 K/mm3 (0.00-0.68); EOSINOPHILS PERCENT AUTO 2 % (0-6); Hematocrit 36.7 % (37.0-53.0); Hemoglobin 12.2 g/dL (13.5-17.5); IMMATURE GRAN ABSOLUTE AUTO 0.06 K/mm3 (0.00-0.10); IMMATURE GRAN PERCENT AUTO 1 % (0-1); LYMPHOCYTES ABSOLUTE AUTO 1.00 K/mm3 (0.84-5.20); LYMPHOCYTES PERCENT AUTO 13 % (21-46); MONOCYTES ABSOLUTE AUTO 0.74 K/mm3 (0.16-1.47); MONOCYTES PERCENT AUTO 10 % (4-13); Mean Corpuscular HGB Conc 33.2 g/dL (31.5-36.5); Mean Corpuscular Volume 96 fL (80-100); NEUTROPHILS ABSOLUTE AUTO 5.63 K/mm3 (1.96-9.15); NEUTROPHILS PERCENT AUTO 74 % (41-73); NRBC ABSOLUTE 0.00 K/mm3 (0.00-0.02); NRBC Auto 0.0 /100 WBC (0.0-0.2); Platelet Count 129 K/mm3 (150-400); RDW Coefficient Variation 15.7 % (11.7-14.2); RDW Standard Deviation 55.3 fL (35.1-46.3)
[2025-03-22 04:28] VITALS: BP 152/109
[2025-03-22 06:33] LABS: Alanine Aminotransfer (ALT/SGP 26.0 U/L (12-78); Albumin, Blood 2.9 g/dL (3.4-5.0); Albumin/Globulin Ratio 0.8 (0.8-1.8); Anion Gap 10.0 mmol/L (3-11); Aspartate Aminotrans (AST/SGOT 19.0 U/L (12-37); Bilirubin, Total 0.7 mg/dL (0.1-1.0); Blood Urea Nitrogen 11.0 mg/dL (8-24); CO2, Blood 23.0 mmol/L (21-32); Calcium, Blood 8.9 mg/dL (8.5-10.1); Chloride, Blood 108.0 mmol/L (98-108); Creatinine, Blood 0.83 mg/dL (0.60-1.20); Globulin, Blood 3.6 g/dL (2.2-4.0); Glucose, Blood 133.0 mg/dL (70-99); Magnesium, Blood 2.0 mg/dL (1.6-2.4); Potassium, Blood 4.1 mmol/L (3.5-5.5); Sodium, Blood 137.0 mmol/L (136-145); Total Protein, Blood 6.5 g/dL (6.4-8.2)
--- NOTE | 2025-03-22 07:31 | NUR ---
SHIFT SUMMARY: PT IS A&OX4, PLEASANT AND COOPERATIVE WITH CARE. HYPERTENSIVE, SBP 150, ON RA AND WHEN ASLEEP HE USES HIS CPAP. PT WAS DESATTING WHILE WEARING HIS CPAP INTO THE 80'S, SO RT PUT A 3L OXYGEN BLEED IN. PT REMAINS IN AFIB 90'S-110'S, DOES REACH 120'S-130'S WITH ANY EXERTION. HE DOES C/O INCREASED DYSPNEA THIS SHIFT. DENIES PAIN. HE IS AD MIRIAM IN ROOM/BR INDEPENDENTLY. HE VOIDS IN THE URINAL. VOIDING LARGE AMOUNTS OF CLEAR, PALE YELLOW URINE. HIS PVR TONIGHT WAS 123ML IN BLADDER. NO BM THIS SHIFT. TOLERATING A HEART HEALTHY DIET. BED IN LOWEST POSITION, CALL LIGHT WITHIN REACH. CALLS APPROPRIATELY AND IS ABLE TO ADVOCATE NEEDS EFFECTIVELY.
[2025-03-22 09:07] VITALS: BP 156/115
[2025-03-22 12:22] VITALS: BP 149/101
[2025-03-22 15:52] VITALS: BP 140/105
--- NOTE | 2025-03-22 18:36 | NUR ---
SHIFT SUMMARY BP HAS BEEN MILDLY ELEVATED. PROVIDER AWARE, MEDICATED PER EMAR. HR HAS BEEN ELEVATED AND IRREGULAR IN AFIB T/O SHIFT. PROVIDER NOTIFIED. MEDICATED PER EMAR. 02 SATS >95% ON RA. NEEDS CPAP AT NIGHT. HOME SLEEP 02 EVAL ORDERED. NEEDS 3L O2 BLEED IN ON CPAP FOR SLEEP. PT IS DIURESIING WELL. INDEPENDANT IN ROOM USES URINAL IN BATHROOM. TAKES PO AMIODARONE. PLAN FOR DISCHARGE TOMORROW PER PROVIDER IF HR STABILIZES. PATIENT DENIES CHEST PAIN/PRESSURE. DOES HAVE SOME SOB WITH EXERTION. PROVIDER AWARE. PATIENT RESTING IN BED IN LOWEST POSITION WITH CALL LIGHT IN REACH.
[2025-03-22 20:33] VITALS: BP 143/96
[2025-03-23 01:05] VITALS: BP 140/93
[2025-03-23 04:05] VITALS: BP 145/103
--- NOTE | 2025-03-23 05:34 | NUR ---
SHIFT SUMMARY: PT IS A&OX4, PLEASANT AND COOPERATIVE WITH CARE. BP ELEVATED, ON RA AND WHEN ASLEEP HE USES HIS CPAP. PT REMAINS IN AFIB 80'S-110'S, DOES REACH 120'S WITH ANY EXERTION. C/O A BOX, MEDICATED WITH PRN 650 MG PO TYLENOL. ROLA DID A SLEEP OX STUDY TONIGHT, HE DID NOT REQUIRE ANY OXYGEN BLEED IN. HE IS AD MIRIAM IN ROOM/BR INDEPENDENTLY. HE VOIDS IN THE URINAL. VOIDING LARGE AMOUNTS OF CLEAR, PALE YELLOW URINE. NO BM THIS SHIFT. TOLERATING A HEART HEALTHY DIET. BED IN LOWEST POSITION, CALL LIGHT WITHIN REACH. CALLS APPROPRIATELY AND IS ABLE TO ADVOCATE NEEDS EFFECTIVELY.
[2025-03-23 06:27] LABS: BASOPHILS ABSOLUTE AUTO 0.03 K/mm3 (0.00-0.23); BASOPHILS PERCENT AUTO 1 % (0-2); EOSINOPHILS ABSOLUTE AUTO 0.20 K/mm3 (0.00-0.68); EOSINOPHILS PERCENT AUTO 4 % (0-6); Hematocrit 39.3 % (37.0-53.0); Hemoglobin 12.9 g/dL (13.5-17.5); IMMATURE GRAN ABSOLUTE AUTO 0.09 K/mm3 (0.00-0.10); IMMATURE GRAN PERCENT AUTO 2 % (0-1); LYMPHOCYTES ABSOLUTE AUTO 1.06 K/mm3 (0.84-5.20); LYMPHOCYTES PERCENT AUTO 22 % (21-46); MONOCYTES ABSOLUTE AUTO 0.84 K/mm3 (0.16-1.47); MONOCYTES PERCENT AUTO 17 % (4-13); Mean Corpuscular HGB Conc 32.8 g/dL (31.5-36.5); Mean Corpuscular Volume 96 fL (80-100); NEUTROPHILS ABSOLUTE AUTO 2.62 K/mm3 (1.96-9.15); NEUTROPHILS PERCENT AUTO 54 % (41-73); NRBC ABSOLUTE 0.02 K/mm3 (0.00-0.02); NRBC Auto 0.4 /100 WBC (0.0-0.2); Platelet Count 145 K/mm3 (150-400); RDW Coefficient Variation 15.6 % (11.7-14.2); RDW Standard Deviation 54.9 fL (35.1-46.3)
[2025-03-23 07:00] LABS: Alanine Aminotransfer (ALT/SGP 31.0 U/L (12-78); Albumin, Blood 2.9 g/dL (3.4-5.0); Albumin/Globulin Ratio 0.8 (0.8-1.8); Anion Gap 8.0 mmol/L (3-11); Aspartate Aminotrans (AST/SGOT 22.0 U/L (12-37); Bilirubin, Total 0.7 mg/dL (0.1-1.0); Blood Urea Nitrogen 12.0 mg/dL (8-24); CO2, Blood 26.0 mmol/L (21-32); Calcium, Blood 9.0 mg/dL (8.5-10.1); Chloride, Blood 109.0 mmol/L (98-108); Creatinine, Blood 0.8 mg/dL (0.60-1.20); Globulin, Blood 3.5 g/dL (2.2-4.0); Glucose, Blood 132.0 mg/dL (70-99); Magnesium, Blood 2.1 mg/dL (1.6-2.4); Potassium, Blood 4.4 mmol/L (3.5-5.5); Sodium, Blood 139.0 mmol/L (136-145); Thyroid Stimulating Hormone 4.19 uIU/mL (0.360-4.800); Total Protein, Blood 6.4 g/dL (6.4-8.2)
[2025-03-23 08:03] VITALS: BP 155/112
[2025-03-23 11:44] VITALS: BP 141/101
[2025-03-23 15:20] VITALS: BP 142/102
[2025-03-23] MEDS ORDERED: CEFD300 PO (16:29)
--- NOTE | 2025-03-23 17:38 | NUR ---
SHIFT SUMMARY/DISCHARGE NOTE [place] HAS BEEN A0X4 T/O SHIFT. BP HAS BEEN ELEVATED. PROVIDER AWARE. MEDICATED PER EMAR. HR AFIB AND INITIALLY 100-130. NOTIFIED PROVIDER. MEDICATED PER EMAR. HR CONTINUED >100. NOTIFIED PROVIDER. MEDICATED PER EMAR. 02 SATS > 94% ON ROOM AIR. SLEEP 02 STUDY DONE LAST NIGHT QUALIFIES FOR HOME . [facility]DERS SENT TO [facility]. PATIENT INDEPENDANT IN ROOM AND USES URINAL BEDSIDE. PATIENT DENIES CHEST PAIN/PRESSURE/SOB AT THIS TIME. PROVIDER PLACED ORDERS FOR DISCHARGE HR STABILIZED. EDUCTION PROVIDED TO PATIENT ABOUT CONDITION AND MEDICATION CHANGES. PATIENT VERBALIZED UNDERSTANDING AND WAS WHEELED OUT BY RN WITH .
== END 2025-03-23 17:44 | disposition home or self-care (01) | DRG 872 ==
LOC: ER 21:04 → ICUE 03-18 01:22 → PCU 03-18 01:22 → ICUE 03-18 03:12 → PCU 03-20 13:47
PROVIDERS: Emergency Medicine; Family Medicine; Hospitalist; Student in an Organized Health Care Education/Training Program; ADMIT Internal Medicine
PROC: 0T9B70Z Drainage of Bladder with Drainage Device, Via Natural or Artificial Opening (ICD-10-PCS; principal; 2025-03-18)
PROC: 5A09357 Assistance with Respiratory Ventilation, Less than 24 Consecutive Hours, Continuous Positive Airway Pressure (ICD-10-PCS; 2025-03-18)
PROC: 3E03329 Introduction of Other Anti-infective into Peripheral Vein, Percutaneous Approach (ICD-10-PCS; 2025-03-18)
PROC: 3E02340 Introduction of Influenza Vaccine into Muscle, Percutaneous Approach (ICD-10-PCS; 2025-03-18)
DX: A41.51 Sepsis due to Escherichia coli [E. coli] (principal); E87.20 Acidosis, unspecified; I50.42 Chronic combined systolic (congestive) and diastolic (congestive) heart failure; N17.9 Acute kidney failure, unspecified; C64.1 Malignant neoplasm of right kidney, except renal pelvis; I47.10 Supraventricular tachycardia, unspecified; R65.20 Severe sepsis without septic shock; I48.91 Unspecified atrial fibrillation; I11.0 Hypertensive heart disease with heart failure; J45.909 Unspecified asthma, uncomplicated; E78.5 Hyperlipidemia, unspecified; G43.909 Migraine, unspecified, not intractable, without status migrainosus; G47.33 Obstructive sleep apnea (adult) (pediatric); F43.12 Post-traumatic stress disorder, chronic; I27.20 Pulmonary hypertension, unspecified; K59.00 Constipation, unspecified; N40.0 Benign prostatic hyperplasia without lower urinary tract symptoms; F17.290 Nicotine dependence, other tobacco product, uncomplicated; N30.91 Cystitis, unspecified with hematuria; K57.30 Diverticulosis of large intestine without perforation or abscess without bleeding; K80.20 Calculus of gallbladder without cholecystitis without obstruction; Z23 Encounter for immunization; Z90.49 Acquired absence of other specified parts of digestive tract; Z79.01 Long term (current) use of anticoagulants; Z79.899 Other long term (current) drug therapy; Z99.89 Dependence on other enabling machines and devices; Z86.79 Personal history of other diseases of the circulatory system; Z98.41 Cataract extraction status, right eye; Z98.42 Cataract extraction status, left eye; Z98.890 Other specified postprocedural states; Z86.73 Personal history of transient ischemic attack (TIA), and cerebral infarction without residual deficits
CPT/HCPCS: 36415; 51701; 71046; 71260; 74177; 80048; 80053; 80069; 81001; 82803; 83605; 83690; 83735; 83880; 84100; 84443; 84484; 85025; 85610; 85730; 87040; 87077; 87086; 87186; 87637; 93005; 93010; 94660; 94762; 96361; 97165; 97530; 99285-25; A9270; J0692; J0696; J1644; J1650; J3373; J7030; J7040; J7050; Q9967